=== PATIENT | male | born 1960 | race Caucasian/White ===

== ENCOUNTER 2024-12-30 05:22 | Day surgery (SDC) | payer OTHER, BC ==
[2024-12-27 12:28] VITALS: BMI 29.8
[2024-12-30 16:49] VITALS: BP 122/78; PULSE 87; RESP 20; TEMP 97.4
[2024-12-30] MEDS: LIDOCAINE HCL 1% PRESERVATIVE FREE - 30ML VIAL IJ ONE (17:35)
== END 2024-12-30 18:30 | disposition home or self-care (01) ==
LOC: JASU-SURG 05:22
PROVIDERS: ATTEND Pain Medicine Pain Medicine
PROC: 01HY3MZ Insertion of Neurostimulator Lead into Peripheral Nerve, Percutaneous Approach (ICD-10-PCS; principal; 2024-12-30 15:30)
DX: G89.4 Chronic pain syndrome (principal); M25.512 Pain in left shoulder
CPT/HCPCS: 64555; C1778